=== PATIENT | male | born 1980 | race Caucasian/White ===

== ENCOUNTER 2016-12-25 08:47 | Inpatient (IN) | payer OTHER ==
[~2016-12-25] VITALS: Ht 182.9 cm; Wt 105.7 kg
[~2016-12-25 08:47] MED LIST: AMLODIPINE BESYL5 MG PO; AUGMENTIN875 MG PO; B COMPLETE1 EACH PO; BENTYL20 MG PO; BLOOD PRESSURE MED; CARAFATE1 GM PO; DILAUDID2 MG PO; DILAUDID4 MG PO; ENDOCET 5-3251 EACH PO; FOLIC ACID1 MG PO; HYDROCODON-ACE1 EAC5 PO; HYDROCODON-ACE1 EAC7 PO; HYDROMORPHONE HC2 MG PO; LAXATIVE5 M1 PO; Lopressor PO; NO HOME MEDS; OMEPRAZOLE40 M1 PO; ONE DAILY FOR1 EACH PO; OXYCODONE HCL5 MG PO; OXYCONTIN10 MG PO; PEPCID20 MG PO; PERCOCET 5/31 TABLET PO; PRAVASTATIN SOD40 MG PO; PROMETHAZINE HC25 M1 PO; PROTONIX IV40 MG PO; PROTONIX40 MG PO; REGLAN10 MG PO; Reglan PO; THERAGRAN1 TABLET PO; VITAMIN B-1100 MG PO; Vicodin,Norco 5/325 PO; ZOFRAN ODT4 MG PO; ZOFRAN ODT8 MG PO; ZOFRAN4 MG PO
[2016-12-25 09:27] LABS: CHLORIDE 107 mEq/L (99-109); POTASSIUM 4.8 mEq/L (3.7-5.4); SODIUM 135 mEq/L (136-147)
[2016-12-25 09:29] LABS: GLUCOSE 117 mg/dL (70-99)
[2016-12-25 09:30] LABS: ANION GAP 13 MEQ/L (2-14)
[2016-12-25 09:31] LABS: TOTAL BILIRUBIN 0.5 mg/dL (0.0-1.0)
[2016-12-25 09:32] LABS: ALKALINE PHOSPHATASE 77 IU/L (3-129)
[2016-12-25 09:33] LABS: GFR ESTIMATE (CALCULATED) > 59 mL/min/
[2016-12-25 09:34] LABS: UREA NITROGEN (BUN) 12 mg/dL (9-23)
[2016-12-25 09:36] LABS: LIPASE 299 U/L (1.0-51.0)
[2016-12-25 10:15] LABS: HEMATOCRIT 43.1 % (38.0-50.0); MCH 32.5 PG (29.0-34.0); MCHC 37.4 G/DL (30.0-36.0); MCV 87.1 FL (86-99); MEAN PLAT.VOLUME 10.1 uM^3 (9.0-12.4); PLATELET COUNT 296 K/uL (156-360); RBC DIS.WIDTH-CV 12.5 % (11.8-14.6); RED BLOOD COUNT 4.95 M/uL (4.00-5.50); WHITE BLOOD COUNT 14.6 K/uL (4.1-10.2)
[2016-12-25 11:34] LABS: TROP-I INTERPRETATION NEGATIVE; TROPONIN-I < 0.01 ng/mL (0.0-0.30)
[2016-12-25 15:56] VITALS: BP 173/108
[2016-12-25 16:00] VITALS: BP 173/108
[2016-12-25 17:03] VITALS: BP 180/98
[2016-12-25 20:00] VITALS: BP 195/89
[2016-12-25 23:56] VITALS: BP 197/98
[2016-12-26 06:32] LABS: MCH 33.5 PG (29.0-34.0); MCHC 36.8 G/DL (30.0-36.0); MCV 90.9 FL (86-99); MEAN PLAT.VOLUME 10.9 uM^3 (9.0-12.4); PLATELET COUNT 223 K/uL (156-360); RBC DIS.WIDTH-CV 12.7 % (11.8-14.6); RBC DIS.WIDTH-SD 42.4 % (39-53); RED BLOOD COUNT 4.51 M/uL (4.00-5.50); WHITE BLOOD COUNT 18.8 K/uL (4.1-10.2)
[2016-12-26 06:57] LABS: ALKALINE PHOSPHATASE 73 IU/L (3-129); ANION GAP 10 MEQ/L (2-14); CHLORIDE 104 MEQ/L (99-109); GFR ESTIMATE (CALCULATED) > 59 mL/min/; GLUCOSE 153 mg/dL (70-99); MAGNESIUM 1.9 mg/dl (1.3-2.7); SAMPLE HEMOLYSIS CHECK 0; SAMPLE ICTERIC CHECK 0; SAMPLE LIPEMIA CHECK 0; SODIUM 136 MEQ/L (136-147); TOTAL BILIRUBIN 0.6 MG/DL (0.0-1.0); UREA NITROGEN (BUN) 7 mg/dL (9-23)
[2016-12-26 07:05] LABS: POTASSIUM 3.8 MEQ/L (3.7-5.4)
[2016-12-26 07:54] VITALS: BP 160/98
[2016-12-26 11:14] VITALS: BP 152/111
[2016-12-26 15:27] VITALS: BP 180/98
[2016-12-26 16:01] VITALS: BP 178/100
[2016-12-26 20:07] VITALS: BP 170/100
[2016-12-27 00:02] VITALS: BP 170/62
[2016-12-27 04:07] VITALS: BP 156/60
[2016-12-27 06:17] LABS: HEMATOCRIT 40.4 % (38.0-50.0); MCH 31.6 PG (29.0-34.0); MCHC 34.9 G/DL (30.0-36.0); MCV 90.6 FL (86-99); MEAN PLAT.VOLUME 10.6 uM^3 (9.0-12.4); PLATELET COUNT 175 K/uL (156-360); RBC DIS.WIDTH-CV 12.7 % (11.8-14.6); RBC DIS.WIDTH-SD 41.9 % (39-53); RED BLOOD COUNT 4.46 M/uL (4.00-5.50); WHITE BLOOD COUNT 17.8 K/uL (4.1-10.2)
[2016-12-27 06:43] LABS: ALKALINE PHOSPHATASE 67 IU/L (3-129); ANION GAP 9 MEQ/L (2-14); CHLORIDE 99 MEQ/L (99-109); GFR ESTIMATE (CALCULATED) > 59 mL/min/; GLUCOSE 126 mg/dL (70-99); HDL CHOLESTEROL 51 MG/DL (Desirable>=40); LDL CHOLESTEROL 112 mg/dL (Desirable<100); LIPASE 171 U/L (1.0-51.0); NON-HDL CHOLESTEROL 146 mg/dL (Desirable<160); POTASSIUM 3.5 MEQ/L (3.7-5.4); SAMPLE HEMOLYSIS CHECK 0; SAMPLE ICTERIC CHECK 0; SAMPLE LIPEMIA CHECK 0; SODIUM 135 MEQ/L (136-147); TOTAL BILIRUBIN 0.7 MG/DL (0.0-1.0); TOTAL CHOLESTEROL 197 mg/dL (Desirable<200); TRIGLYCERIDES 169 MG/DL (Normal: <150); UREA NITROGEN (BUN) 4 mg/dL (9-23)
[2016-12-27 07:06] VITALS: BP 172/96
[2016-12-27 09:21] LABS: Estimated Average Glucose 105 mg/dL (70-123); HEMOGLOBIN A1c (GLYCOHEMOGLOB) 5.3 % HGB (Below 5.7)
[2016-12-27 11:22] VITALS: BP 182/106
[2016-12-27 15:24] VITALS: BP 168/102
[2016-12-27 23:42] VITALS: BP 158/98
[2016-12-28 07:45] VITALS: BP 203/113
[2016-12-28 08:15] VITALS: BP 180/82
[2016-12-28 08:41] LABS: HEMATOCRIT 39.7 % (38.0-50.0); MCH 31.4 PG (29.0-34.0); MCHC 34.8 G/DL (30.0-36.0); MCV 90.4 FL (86-99); MEAN PLAT.VOLUME 10.4 uM^3 (9.0-12.4); PLATELET COUNT 179 K/uL (156-360); RBC DIS.WIDTH-CV 12.7 % (11.8-14.6); RBC DIS.WIDTH-SD 41.8 % (39-53); RED BLOOD COUNT 4.39 M/uL (4.00-5.50)
[2016-12-28 08:44] LABS: WHITE BLOOD COUNT 9.8 K/uL (4.1-10.2)
[2016-12-28 09:02] LABS: ALKALINE PHOSPHATASE 70 IU/L (3-129); ANION GAP 8 MEQ/L (2-14); CHLORIDE 99 MEQ/L (99-109); GFR ESTIMATE (CALCULATED) > 59 mL/min/; GLUCOSE 99 mg/dL (70-99); LIPASE 73 U/L (1.0-51.0); POTASSIUM 3.4 MEQ/L (3.7-5.4); SAMPLE HEMOLYSIS CHECK 0; SAMPLE ICTERIC CHECK 0; SAMPLE LIPEMIA CHECK 0; SODIUM 135 MEQ/L (136-147); TOTAL BILIRUBIN 0.8 MG/DL (0.0-1.0); UREA NITROGEN (BUN) 7 mg/dL (9-23)
[2016-12-28 10:05] VITALS: BP 178/108
[2016-12-28 16:20] VITALS: BP 148/105
[2016-12-29 00:03] VITALS: BP 150/94
[2016-12-29 06:17] LABS: HEMATOCRIT 38.1 % (38.0-50.0); MCH 32.5 PG (29.0-34.0); MCHC 36.2 G/DL (30.0-36.0); MCV 89.6 FL (86-99); MEAN PLAT.VOLUME 9.8 uM^3 (9.0-12.4); PLATELET COUNT 192 K/uL (156-360); RBC DIS.WIDTH-CV 12.6 % (11.8-14.6); RBC DIS.WIDTH-SD 40.4 % (39-53); RED BLOOD COUNT 4.25 M/uL (4.00-5.50); WHITE BLOOD COUNT 8.7 K/uL (4.1-10.2)
[2016-12-29 06:41] LABS: ALKALINE PHOSPHATASE 64 IU/L (3-129); ANION GAP 8 MEQ/L (2-14); CHLORIDE 101 MEQ/L (99-109); GFR ESTIMATE (CALCULATED) > 59 mL/min/; GLUCOSE 112 mg/dL (70-99); LIPASE 82 U/L (1.0-51.0); POTASSIUM 3.6 MEQ/L (3.7-5.4); SAMPLE HEMOLYSIS CHECK 0; SAMPLE ICTERIC CHECK 0; SAMPLE LIPEMIA CHECK 0; SODIUM 136 MEQ/L (136-147); TOTAL BILIRUBIN 0.8 MG/DL (0.0-1.0); UREA NITROGEN (BUN) 7 mg/dL (9-23)
[2016-12-29 07:39] VITALS: BP 148/70
[2016-12-29 11:46] VITALS: BP 156/99
[2016-12-29] MEDS ORDERED: OXYCODONE HCL5 MG PO (11:53)
== END 2016-12-29 14:50 | disposition home or self-care (01) | DRG 439 ==
LOC: EME 08:47 → 5SOUTH 10:40 → EDOF 10:40 → 5SOUTH 15:39
PROVIDERS: Internal Medicine; Internal Medicine Gastroenterology; Nurse Practitioner Adult Health
DX: K85.20 Alcohol induced acute pancreatitis without necrosis or infection (principal); E87.1 Hypo-osmolality and hyponatremia; K86.0 Alcohol-induced chronic pancreatitis; F10.20 Alcohol dependence, uncomplicated; F17.210 Nicotine dependence, cigarettes, uncomplicated; Z91.19 Patient's noncompliance with other medical treatment and regimen; I10 Essential (primary) hypertension; K70.0 Alcoholic fatty liver; Z71.6 Tobacco abuse counseling
CPT/HCPCS: 71020; 74176; 76705; 80053; 80061; 81003; 82787 90; 83036; 83690; 83735; 84100; 84484; 85027; 87040; 99281; 99285; C9113; J0360; J1170; J1650; J1885; J2060; J2405; J2765; J3411; J3480; J7030; J7042; S0028

== ENCOUNTER 2017-08-18 21:11 | Inpatient (IN) | payer OTHER ==
[~2017-08-18] VITALS: Ht 182.9 cm; Wt 104.4 kg
[2017-08-18 22:07] LABS: HEMATOCRIT 47.6 % (38.0-50.0); MCHC 35.9 G/DL (30.0-36.0); MEAN PLAT.VOLUME 9.7 uM^3 (9.0-12.4); PLATELET COUNT 291 K/uL (156-360); RBC DIS.WIDTH-SD 39.1 % (39-53); RED BLOOD COUNT 5.35 M/uL (4.00-5.50)
[2017-08-18 22:17] LABS: CHLORIDE 106 mEq/L (99-109); POTASSIUM 4.4 mEq/L (3.7-5.4); SODIUM 139 mEq/L (136-147)
[2017-08-18 22:19] LABS: GLUCOSE 120 mg/dL (70-99)
[2017-08-18 22:21] LABS: ANION GAP 13 MEQ/L (2-14); TOTAL BILIRUBIN 0.4 mg/dL (0.0-1.0)
[2017-08-18 22:23] LABS: ALKALINE PHOSPHATASE 87 IU/L (3-129); GFR ESTIMATE (CALCULATED) > 59 mL/min/
[2017-08-18 22:24] LABS: UREA NITROGEN (BUN) 11 mg/dL (9-23)
[2017-08-18 22:27] LABS: LIPASE 247 U/L (1.0-51.0)
[2017-08-19 03:47] LABS: ADD MIUA? NO; BILIRUBIN NEGATIVE; BLOOD NEGATIVE; COLOR YELLOW ((YELLOW)); GLUCOSE (STRIP) NEGATIVE; KETONES NEGATIVE; LEUKOCYTES NEGATIVE; NITRITE NEGATIVE; PROTEIN (STRIP) NEGATIVE; SPECIFIC GRAVITY 1.036 (1.000-1.030); UROBILINOGEN 0.2 MG/DL (0.2-1.0)
[2017-08-19 03:51] LABS: UCUL ADDED? NO
[2017-08-19 05:00] VITALS: BP 159/86
[2017-08-19 05:38] VITALS: BP 159/86
[2017-08-19 07:56] VITALS: BP 168/102; BP 177/106
[2017-08-19 23:39] VITALS: BP 188/90
[2017-08-20 06:58] LABS: EOSINOPHIL (%) 0.2 % (0-5); HEMATOCRIT 41.3 % (38.0-50.0); IMMATURE GRANULOCYTE (%) 0.6 % (0.0-0.7); IMMATURE GRANULOCYTE COUNT 0.1 K/uL; INSTRUMENT ABS NEUTROPHIL CT 14.5 K/uL; LYMPHOCYTE COUNT 0.8 K/uL (1.0-2.8); MCH 33.5 PG (29.0-34.0); MCHC 36.8 G/DL (30.0-36.0); MEAN PLAT.VOLUME 10.1 uM^3 (9.0-12.4); MONOCYTE (%) 4.7 % (3-12); MONOCYTE COUNT 0.8 K/uL (0-0.8); NEUTROPHIL (%) 89.7 % (45-76); NEUTROPHIL COUNT 14.5 K/uL (1.8-6.4); PLATELET COUNT 224 K/uL (156-360); RBC DIS.WIDTH-CV 12.1 % (11.8-14.6); RBC DIS.WIDTH-SD 40.4 % (39-53); RED BLOOD COUNT 4.54 M/uL (4.00-5.50); WHITE BLOOD COUNT 16.2 K/uL (4.1-10.2)
[2017-08-20 07:25] LABS: ALKALINE PHOSPHATASE 69 IU/L (3-129); ANION GAP 6 MEQ/L (2-14); CHLORIDE 106 MEQ/L (99-109); GFR ESTIMATE (CALCULATED) > 59 mL/min/; GLUCOSE 157 mg/dL (70-99); POTASSIUM 3.6 MEQ/L (3.7-5.4); SAMPLE HEMOLYSIS CHECK 0; SAMPLE ICTERIC CHECK 0; SAMPLE LIPEMIA CHECK 0; SODIUM 137 MEQ/L (136-147); TOTAL BILIRUBIN 0.6 MG/DL (0.0-1.0); UREA NITROGEN (BUN) 7 mg/dL (9-23)
[2017-08-20 07:48] LABS: ANION GAP 11 MEQ/L (2-14); CHLORIDE 107 MEQ/L (99-109); GFR ESTIMATE (CALCULATED) > 59 mL/min/; GLUCOSE 147 mg/dL (70-99); LIPASE 530 U/L (1.0-51.0); POTASSIUM 3.7 MEQ/L (3.7-5.4); SAMPLE HEMOLYSIS CHECK 0; SAMPLE ICTERIC CHECK 0; SAMPLE LIPEMIA CHECK 0; SODIUM 139 MEQ/L (136-147); UREA NITROGEN (BUN) 6 mg/dL (9-23)
[2017-08-20 07:53] VITALS: BP 172/60
[2017-08-20 08:43] LABS: FERRITIN 423 NG/ML (22-322)
[2017-08-20 09:54] LABS: MAGNESIUM 1.7 mg/dl (1.3-2.7)
[2017-08-20 11:11] LABS: HBSG INDEX 0.19; HPCA INDEX 0.11
[2017-08-20 11:12] LABS: AHBS INDEX 0.16; HEPATITIS B SURFACE ANTIBODY Nonreactive
[2017-08-20 17:26] VITALS: BP 150/80
[2017-08-20 22:49] VITALS: BP 180/108
[2017-08-21 06:14] LABS: HEMATOCRIT 42.8 % (38.0-50.0); MCH 33.1 PG (29.0-34.0); MCHC 36.9 G/DL (30.0-36.0); MCV 89.5 FL (86-99); MEAN PLAT.VOLUME 9.9 uM^3 (9.0-12.4); PLATELET COUNT 215 K/uL (156-360); RBC DIS.WIDTH-CV 11.9 % (11.8-14.6); RBC DIS.WIDTH-SD 38.8 % (39-53); RED BLOOD COUNT 4.78 M/uL (4.00-5.50); WHITE BLOOD COUNT 20.1 K/uL (4.1-10.2)
[2017-08-21 06:37] LABS: ALKALINE PHOSPHATASE 72 IU/L (3-129); ANION GAP 13 MEQ/L (2-14); CHLORIDE 98 MEQ/L (99-109); GFR ESTIMATE (CALCULATED) > 59 mL/min/; GLUCOSE 151 mg/dL (70-99); POTASSIUM 3.5 MEQ/L (3.7-5.4); SAMPLE HEMOLYSIS CHECK 1; SAMPLE ICTERIC CHECK 0; SAMPLE LIPEMIA CHECK 0; SODIUM 135 MEQ/L (136-147); TOTAL BILIRUBIN 0.7 MG/DL (0.0-1.0); UREA NITROGEN (BUN) 3 mg/dL (9-23)
[2017-08-21 07:28] VITALS: BP 190/100
[2017-08-21 12:50] VITALS: BP 181/118
[2017-08-21 13:55] VITALS: BP 182/115
[2017-08-21 16:36] VITALS: BP 196/116
[2017-08-21 22:04] VITALS: BP 181/104
[2017-08-22 03:58] VITALS: BP 141/95
[2017-08-22 07:18] VITALS: BP 155/99
[2017-08-22 09:21] VITALS: BP 142/92
[2017-08-22 09:37] LABS: HEMATOCRIT 39.3 % (38.0-50.0); MCH 33.5 PG (29.0-34.0); MCHC 37.4 G/DL (30.0-36.0); MCV 89.5 FL (86-99); MEAN PLAT.VOLUME 9.7 uM^3 (9.0-12.4); PLATELET COUNT 210 K/uL (156-360); RBC DIS.WIDTH-SD 39.1 % (39-53); RED BLOOD COUNT 4.39 M/uL (4.00-5.50); WHITE BLOOD COUNT 17.8 K/uL (4.1-10.2)
[2017-08-22 10:05] LABS: ALKALINE PHOSPHATASE 72 IU/L (3-129); ANION GAP 8 MEQ/L (2-14); CHLORIDE 98 MEQ/L (99-109); GFR ESTIMATE (CALCULATED) > 59 mL/min/; LIPASE 95 U/L (1.0-51.0); POTASSIUM 3.4 MEQ/L (3.7-5.4); SAMPLE HEMOLYSIS CHECK 0; SAMPLE ICTERIC CHECK 0; SAMPLE LIPEMIA CHECK 0; SODIUM 132 MEQ/L (136-147); UREA NITROGEN (BUN) 10 mg/dL (9-23)
[2017-08-22 10:07] LABS: GLUCOSE 112 mg/dL (70-99); TOTAL BILIRUBIN 1.3 MG/DL (0.0-1.0)
[2017-08-22 15:56] VITALS: BP 136/82
[2017-08-22 23:55] VITALS: BP 137/90
[2017-08-23 06:06] LABS: HEMATOCRIT 41.3 % (38.0-50.0); MCH 31.3 PG (29.0-34.0); MCHC 34.6 G/DL (30.0-36.0); MCV 90.4 FL (86-99); MEAN PLAT.VOLUME 9.7 uM^3 (9.0-12.4); PLATELET COUNT 215 K/uL (156-360); RBC DIS.WIDTH-CV 11.9 % (11.8-14.6); RBC DIS.WIDTH-SD 39.6 % (39-53); RED BLOOD COUNT 4.57 M/uL (4.00-5.50)
[2017-08-23 06:56] LABS: ALKALINE PHOSPHATASE 85 IU/L (3-129); ANION GAP 11 MEQ/L (2-14); CHLORIDE 100 MEQ/L (99-109); GFR ESTIMATE (CALCULATED) > 59 mL/min/; GLUCOSE 80 mg/dL (70-99); LIPASE 78 U/L (1.0-51.0); POTASSIUM 3.4 MEQ/L (3.7-5.4); PREALBUMIN 10.4 mg/dL (10-40); SAMPLE HEMOLYSIS CHECK 0; SAMPLE ICTERIC CHECK 0; SAMPLE LIPEMIA CHECK 0; SODIUM 135 MEQ/L (136-147); TRIGLYCERIDES 137 MG/DL (Normal: <150); UREA NITROGEN (BUN) 10 mg/dL (9-23)
[2017-08-23 08:53] VITALS: BP 139/85
[2017-08-23 16:24] VITALS: BP 135/70
[2017-08-23 23:45] VITALS: BP 117/80
[2017-08-24 06:30] LABS: BASOPHIL COUNT 0.1 K/uL (0-0.1); EOSINOPHIL (%) 4.3 % (0-5); EOSINOPHIL COUNT 0.4 K/uL (0-0.3); HEMATOCRIT 38.8 % (38.0-50.0); IMMATURE GRANULOCYTE (%) 0.7 % (0.0-0.7); IMMATURE GRANULOCYTE COUNT 0.1 K/uL; INSTRUMENT ABS NEUTROPHIL CT 7.4 K/uL; LYMPHOCYTE COUNT 1.5 K/uL (1.0-2.8); MCH 32.5 PG (29.0-34.0); MCHC 35.3 G/DL (30.0-36.0); MCV 92.2 FL (86-99); MEAN PLAT.VOLUME 9.7 uM^3 (9.0-12.4); MONOCYTE (%) 7.5 % (3-12); MONOCYTE COUNT 0.8 K/uL (0-0.8); NEUTROPHIL (%) 72.2 % (45-76); NEUTROPHIL COUNT 7.4 K/uL (1.8-6.4); PLATELET COUNT 223 K/uL (156-360); RBC DIS.WIDTH-CV 11.9 % (11.8-14.6); RBC DIS.WIDTH-SD 40.1 % (39-53); RED BLOOD COUNT 4.21 M/uL (4.00-5.50); WHITE BLOOD COUNT 10.2 K/uL (4.1-10.2)
[2017-08-24 07:02] LABS: ALKALINE PHOSPHATASE 76 IU/L (3-129); ANION GAP 10 MEQ/L (2-14); CHLORIDE 101 MEQ/L (99-109); GFR ESTIMATE (CALCULATED) > 59 mL/min/; LIPASE 50 U/L (1.0-51.0); MAGNESIUM 2.2 mg/dl (1.3-2.7); POTASSIUM 3.9 MEQ/L (3.7-5.4); SAMPLE HEMOLYSIS CHECK 0; SAMPLE ICTERIC CHECK 0; SAMPLE LIPEMIA CHECK 0; SODIUM 136 MEQ/L (136-147); UREA NITROGEN (BUN) 11 mg/dL (9-23)
[2017-08-24 07:05] LABS: GLUCOSE 112 mg/dL (70-99); TOTAL BILIRUBIN 0.7 MG/DL (0.0-1.0)
[2017-08-24 07:42] VITALS: BP 139/82
[2017-08-24 15:46] VITALS: BP 162/94
[2017-08-24 20:07] VITALS: BP 143/83
[2017-08-24 23:19] VITALS: BP 150/95
[2017-08-25 06:43] LABS: BASOPHIL COUNT 0.1 K/uL (0-0.1); EOSINOPHIL (%) 3.6 % (0-5); EOSINOPHIL COUNT 0.3 K/uL (0-0.3); HEMATOCRIT 38.9 % (38.0-50.0); IMMATURE GRANULOCYTE (%) 0.5 % (0.0-0.7); INSTRUMENT ABS NEUTROPHIL CT 5.3 K/uL; LYMPHOCYTE COUNT 1.9 K/uL (1.0-2.8); MCH 32.8 PG (29.0-34.0); MCHC 36.2 G/DL (30.0-36.0); MCV 90.5 FL (86-99); MEAN PLAT.VOLUME 9.7 uM^3 (9.0-12.4); MONOCYTE (%) 10.3 % (3-12); MONOCYTE COUNT 0.9 K/uL (0-0.8); NEUTROPHIL (%) 62.9 % (45-76); NEUTROPHIL COUNT 5.3 K/uL (1.8-6.4); PLATELET COUNT 242 K/uL (156-360); RBC DIS.WIDTH-CV 11.9 % (11.8-14.6); RBC DIS.WIDTH-SD 38.8 % (39-53); WHITE BLOOD COUNT 8.4 K/uL (4.1-10.2)
[2017-08-25 07:07] LABS: ANION GAP 8 MEQ/L (2-14); CHLORIDE 102 MEQ/L (99-109); GFR ESTIMATE (CALCULATED) > 59 mL/min/; GLUCOSE 134 mg/dL (70-99); MAGNESIUM 1.9 mg/dl (1.3-2.7); POTASSIUM 3.7 MEQ/L (3.7-5.4); SAMPLE HEMOLYSIS CHECK 0; SAMPLE ICTERIC CHECK 0; SAMPLE LIPEMIA CHECK 0; SODIUM 139 MEQ/L (136-147); UREA NITROGEN (BUN) 6 mg/dL (9-23)
[2017-08-25] MEDS ORDERED: LOPRESSOR25 MG PO (10:48)
[2017-08-25] MEDS ORDERED: Thiamine,Vitamin B1 PO (10:49)
[2017-08-25] MEDS ORDERED: CLONIDINE HCL0.1 MG PO (10:49)
[2017-08-25] MEDS ORDERED: FOLIC ACID1 MG PO (10:49)
[2017-08-25] MEDS ORDERED: ROXICODONE5 MG PO (12:52)
== END 2017-08-25 13:38 | disposition home or self-care (01) | DRG 439 ==
LOC: EME 21:11 → 5EAST 08-19 02:41 → EDOF 08-19 02:41 → ENRESERV 08-19 02:43 → 5EAST 08-19 04:46 → ENPENDDIS 08-25 → 5EAST 08-25 13:38
PROVIDERS: Hospitalist; Internal Medicine; Internal Medicine Gastroenterology; Physician Assistant
DX: K85.20 Alcohol induced acute pancreatitis without necrosis or infection (principal); K86.1 Other chronic pancreatitis; Z91.19 Patient's noncompliance with other medical treatment and regimen; E87.6 Hypokalemia; E86.0 Dehydration; F17.210 Nicotine dependence, cigarettes, uncomplicated; K86.3 Pseudocyst of pancreas; R65.10 Systemic inflammatory response syndrome (SIRS) of non-infectious origin without acute organ dysfunction; I16.0 Hypertensive urgency; F10.239 Alcohol dependence with withdrawal, unspecified; K76.0 Fatty (change of) liver, not elsewhere classified; I10 Essential (primary) hypertension; E83.39 Other disorders of phosphorus metabolism
CPT/HCPCS: 71010; 74177; 76705; 80048; 80053; 81003; 82728; 83690; 83735; 84100; 84134; 84478; 84630 90; 85025; 85027; 86038; 86706; 86708 90; 86803; 87340; 93005; 99281; 99285; J0360; J1170; J1650; J1885; J2060; J2270; J2405; J2543; J3010; J3411; J3480; J7030; J7042; J7050

== ENCOUNTER 2018-04-14 19:18 | Emergency (ER) | payer OTHER ==
[~2018-04-14] VITALS: Ht 182.9 cm; Wt 104.3 kg
[~2018-04-14 19:18] MED LIST changes: +CLONIDINE HCL0.1 MG PO; +LOPRESSOR25 MG PO; +ROXICODONE5 MG PO; +Thiamine,Vitamin B1 PO
[2018-04-14 19:38] LABS: HEMATOCRIT 44.4 % (38.0-50.0); HEMOGLOBIN 16.1 G/DL (12.5-16.6); MCH 33.2 PG (29.0-34.0); MCHC 36.3 G/DL (30.0-36.0); MCV 91.5 FL (86-99); PLATELET COUNT 236 K/uL (156-360); RBC DIS.WIDTH-CV 12.5 % (11.8-14.6); RBC DIS.WIDTH-SD 41.9 % (39-53); RED BLOOD COUNT 4.85 M/uL (4.00-5.50); WHITE BLOOD COUNT 13.3 K/uL (4.1-10.2)
[2018-04-14 19:49] LABS: CHLORIDE 105 mEq/L (99-109)
[2018-04-14 19:50] LABS: POTASSIUM 4.4 mEq/L (3.7-5.4); SODIUM 138 mEq/L (136-147)
[2018-04-14 19:51] LABS: GLUCOSE 125 mg/dL (70-99)
[2018-04-14 19:55] LABS: CREATININE 1.1 mg/dL (0.6-1.3); GFR ESTIMATE (CALCULATED) > 59 mL/min/ (58.99-99999)
[2018-04-14 19:56] LABS: UREA NITROGEN (BUN) 10 mg/dL (9-23)
[2018-04-14 20:01] LABS: TROP-I INTERPRETATION NEGATIVE; TROPONIN-I < 0.01 ng/mL (0.0-0.30)
[2018-04-14 21:41] LABS: TOTAL PROTEIN 7.1 g/dL (6.4-8.3)
[2018-04-14 21:42] LABS: TOTAL BILIRUBIN 0.6 mg/dL (0.0-1.0)
[2018-04-14 21:43] LABS: ALKALINE PHOSPHATASE 90 IU/L (3-129)
[2018-04-14 21:46] LABS: AST (GOT) 102 IU/L (2-34); DIRECT BILIRUBIN 0.3 mg/dL (0.0-0.3)
[2018-04-14 21:47] LABS: ALT (GPT) 168 IU/L (3-49); LIPASE 20 U/L (1.0-51.0)
[2018-04-14] MEDS ORDERED: VALIUM5 MG PO (22:38)
[2018-04-14] MEDS ORDERED: NAPROXEN500 MG PO (22:38)
[2018-04-14 23:00] VITALS: BP 138/123
== END 2018-04-14 23:08 | disposition home or self-care (01) ==
LOC: EME 19:18
DX: M54.9 Dorsalgia, unspecified (principal); R74.8 Abnormal levels of other serum enzymes; K21.9 Gastro-esophageal reflux disease without esophagitis; F17.200 Nicotine dependence, unspecified, uncomplicated; Z87.19 Personal history of other diseases of the digestive system
CPT/HCPCS: 71046; 80048; 80076; 83690; 84484; 85027; 93005; 99281; 99285

== ENCOUNTER 2018-05-04 16:17 | Inpatient (IN) | payer OTHER ==
[~2018-05-04] VITALS: Ht 182.9 cm; Wt 104.1 kg
[~2018-05-04 16:17] MED LIST changes: +NAPROXEN500 MG PO; +VALIUM5 MG PO
[2018-05-04 16:40] LABS: BASOPHIL (%) 0.6 % (0-1); BASOPHIL COUNT 0.1 K/uL (0-0.1); EOSINOPHIL (%) 2.9 % (0-5); EOSINOPHIL COUNT 0.5 K/uL (0-0.3); HEMATOCRIT 45.6 % (38.0-50.0); IMMATURE GRANULOCYTE (%) 0.5 % (0.0-0.7); LYMPHOCYTE (%) 13.1 % (15-42); LYMPHOCYTE COUNT 2.2 K/uL (1.0-2.8); MCH 33.1 PG (29.0-34.0); MCHC 37.3 G/DL (30.0-36.0); MCV 88.7 FL (86-99); MONOCYTE (%) 4.8 % (3-12); MONOCYTE COUNT 0.8 K/uL (0-0.8); NEUTROPHIL (%) 78.1 % (45-76); NEUTROPHIL COUNT 13.4 K/uL (1.8-6.4); PLATELET COUNT 281 K/uL (156-360); RBC DIS.WIDTH-CV 12.1 % (11.8-14.6); RBC DIS.WIDTH-SD 39.6 % (39-53); RED BLOOD COUNT 5.14 M/uL (4.00-5.50); WHITE BLOOD COUNT 17.1 K/uL (4.1-10.2)
[2018-05-04 16:50] LABS: ALBUMIN 4.3 g/dL (3.2-4.8); CHLORIDE 104 mEq/L (99-109); POTASSIUM 4.6 mEq/L (3.7-5.4); SODIUM 136 mEq/L (136-147)
[2018-05-04 16:52] LABS: GLUCOSE 122 mg/dL (70-99); TOTAL PROTEIN 7.3 g/dL (6.4-8.3)
[2018-05-04 16:54] LABS: TOTAL BILIRUBIN 0.3 mg/dL (0.0-1.0)
[2018-05-04 16:56] LABS: ALKALINE PHOSPHATASE 85 IU/L (3-129); CREATININE 0.9 mg/dL (0.6-1.3); GFR ESTIMATE (CALCULATED) > 59 mL/min/ (58.99-99999)
[2018-05-04 16:57] LABS: UREA NITROGEN (BUN) 9 mg/dL (9-23)
[2018-05-04 16:58] LABS: AST (GOT) 61 IU/L (2-34)
[2018-05-04 16:59] LABS: ALT (GPT) 96 IU/L (3-49); LIPASE 731 U/L (1.0-51.0)
[2018-05-04] MEDS ORDERED: NAPROSYN500 MG PO (17:40)
[2018-05-04 18:09] LABS: SERUM ETHYL ALCOHOL < 10 mg/dL
[2018-05-04 19:00] LABS: MAGNESIUM 1.8 mg/dL (1.3-2.7)
[2018-05-04 19:35] LABS: C-REACTIVE PROTEIN 2.7 MG/L (0-10)
[2018-05-04 21:21] VITALS: BP 182/111
[2018-05-05] VITALS (8 sets, daily range): BP systolic 132–201; BP diastolic 68–118
[2018-05-05 06:45] LABS: BASOPHIL (%) 0.4 % (0-1); BASOPHIL COUNT 0.1 K/uL (0-0.1); EOSINOPHIL (%) 1.3 % (0-5); EOSINOPHIL COUNT 0.2 K/uL (0-0.3); HEMATOCRIT 43.5 % (38.0-50.0); HEMOGLOBIN 15.3 G/DL (12.5-16.6); IMMATURE GRANULOCYTE (%) 0.5 % (0.0-0.7); LYMPHOCYTE (%) 9.9 % (15-42); LYMPHOCYTE COUNT 1.7 K/uL (1.0-2.8); MCH 31.9 PG (29.0-34.0); MCHC 35.2 G/DL (30.0-36.0); MCV 90.8 FL (86-99); MONOCYTE (%) 5.2 % (3-12); MONOCYTE COUNT 0.9 K/uL (0-0.8); NEUTROPHIL (%) 82.7 % (45-76); NEUTROPHIL COUNT 13.7 K/uL (1.8-6.4); PLATELET COUNT 242 K/uL (156-360); RBC DIS.WIDTH-CV 12.1 % (11.8-14.6); RBC DIS.WIDTH-SD 40.3 % (39-53); RED BLOOD COUNT 4.79 M/uL (4.00-5.50); WHITE BLOOD COUNT 16.6 K/uL (4.1-10.2)
[2018-05-05 06:49] LABS: APPEARANCE CLEAR ((CLEAR)); BILIRUBIN NEGATIVE; BLOOD NEGATIVE; COLOR YELLOW ((YELLOW)); GLUCOSE (STRIP) NEGATIVE; KETONES NEGATIVE; LEUKOCYTES NEGATIVE; NITRITE NEGATIVE; PROTEIN (STRIP) NEGATIVE; SPECIFIC GRAVITY 1.033 (1.000-1.030); UCUL ADDED? NO; UROBILINOGEN 0.2 MG/DL (0.2-1.0)
[2018-05-05 07:04] LABS: ALBUMIN 3.8 G/DL (3.2-4.8); ALKALINE PHOSPHATASE 81 IU/L (3-129); ALT (GPT) 57 IU/L (3-49); AST (GOT) 36 IU/L (2-34); CHLORIDE 104 MEQ/L (99-109); CREATININE 0.7 MG/DL (0.6-1.3); GFR ESTIMATE (CALCULATED) > 59 mL/min/ (58.99-99999); GLUCOSE 133 mg/dL (70-99); LIPASE 434 U/L (1.0-51.0); POTASSIUM 4.4 MEQ/L (3.7-5.4); SODIUM 137 MEQ/L (136-147); TOTAL BILIRUBIN 0.6 MG/DL (0.0-1.0); TOTAL PROTEIN 5.9 G/DL (6.4-8.3); UREA NITROGEN (BUN) 7 mg/dL (9-23)
[2018-05-06 00:20] VITALS: BP 194/103
[2018-05-06 04:45] VITALS: BP 184/105
[2018-05-06 06:35] VITALS: BP 171/99
[2018-05-06 10:17] LABS: BASOPHIL (%) 0.5 % (0-1); BASOPHIL COUNT 0.1 K/uL (0-0.1); EOSINOPHIL (%) 1.2 % (0-5); EOSINOPHIL COUNT 0.2 K/uL (0-0.3); HEMATOCRIT 42.9 % (38.0-50.0); HEMOGLOBIN 15.6 G/DL (12.5-16.6); IMMATURE GRANULOCYTE (%) 0.5 % (0.0-0.7); LYMPHOCYTE (%) 8.1 % (15-42); LYMPHOCYTE COUNT 1.2 K/uL (1.0-2.8); MCH 32.4 PG (29.0-34.0); MCHC 36.4 G/DL (30.0-36.0); MONOCYTE COUNT 0.8 K/uL (0-0.8); NEUTROPHIL (%) 84.7 % (45-76); NEUTROPHIL COUNT 12.9 K/uL (1.8-6.4); PLATELET COUNT 208 K/uL (156-360); RBC DIS.WIDTH-CV 12.1 % (11.8-14.6); RBC DIS.WIDTH-SD 39.4 % (39-53); RED BLOOD COUNT 4.82 M/uL (4.00-5.50); WHITE BLOOD COUNT 15.3 K/uL (4.1-10.2)
[2018-05-06 10:43] LABS: CHLORIDE 94 MEQ/L (99-109); CREATININE 0.6 MG/DL (0.6-1.3); GFR ESTIMATE (CALCULATED) > 59 mL/min/ (58.99-99999); GLUCOSE 124 mg/dL (70-99); LIPASE 83 U/L (1.0-51.0); POTASSIUM 3.8 MEQ/L (3.7-5.4); SODIUM 130 MEQ/L (136-147); UREA NITROGEN (BUN) 4 mg/dL (9-23)
[2018-05-06 11:47] VITALS: BP 166/84
[2018-05-06 15:05] VITALS: BP 165/101
[2018-05-06 23:03] VITALS: BP 158/100; BP 165/103
[2018-05-07 06:08] LABS: BASOPHIL (%) 0.3 % (0-1); EOSINOPHIL (%) 2.1 % (0-5); EOSINOPHIL COUNT 0.3 K/uL (0-0.3); HEMATOCRIT 42.6 % (38.0-50.0); HEMOGLOBIN 15.2 G/DL (12.5-16.6); IMMATURE GRANULOCYTE (%) 0.4 % (0.0-0.7); LYMPHOCYTE (%) 12.5 % (15-42); LYMPHOCYTE COUNT 1.6 K/uL (1.0-2.8); MCH 31.6 PG (29.0-34.0); MCHC 35.7 G/DL (30.0-36.0); MCV 88.6 FL (86-99); MONOCYTE (%) 6.1 % (3-12); MONOCYTE COUNT 0.8 K/uL (0-0.8); NEUTROPHIL (%) 78.6 % (45-76); PLATELET COUNT 224 K/uL (156-360); RBC DIS.WIDTH-CV 11.8 % (11.8-14.6); RBC DIS.WIDTH-SD 38.3 % (39-53); RED BLOOD COUNT 4.81 M/uL (4.00-5.50); WHITE BLOOD COUNT 12.7 K/uL (4.1-10.2)
[2018-05-07 06:38] LABS: CHLORIDE 96 MEQ/L (99-109); CREATININE 0.6 MG/DL (0.6-1.3); GFR ESTIMATE (CALCULATED) > 59 mL/min/ (58.99-99999); GLUCOSE 107 mg/dL (70-99); LIPASE 46 U/L (1.0-51.0); POTASSIUM 3.8 MEQ/L (3.7-5.4); SODIUM 130 MEQ/L (136-147); UREA NITROGEN (BUN) 5 mg/dL (9-23)
[2018-05-07 06:53] LABS: APPEARANCE CLEAR ((CLEAR)); BILIRUBIN NEGATIVE; BLOOD NEGATIVE; COLOR YELLOW ((YELLOW)); GLUCOSE (STRIP) NEGATIVE; KETONES 80; LEUKOCYTES NEGATIVE; NITRITE NEGATIVE; PROTEIN (STRIP) NEGATIVE; SPECIFIC GRAVITY 1.011 (1.000-1.030); UCUL ADDED? NO
[2018-05-07 07:24] VITALS: BP 178/110
[2018-05-07 16:33] VITALS: BP 172/100
[2018-05-07 19:42] VITALS: BP 174/104
[2018-05-07 20:55] VITALS: BP 142/79
[2018-05-08 00:13] VITALS: BP 165/95
[2018-05-08 03:57] VITALS: BP 165/99
[2018-05-08 08:00] VITALS: BP 169/105
[2018-05-08 08:53] LABS: BASOPHIL (%) 0.5 % (0-1); BASOPHIL COUNT 0.1 K/uL (0-0.1); EOSINOPHIL (%) 2.1 % (0-5); EOSINOPHIL COUNT 0.2 K/uL (0-0.3); HEMATOCRIT 45.5 % (38.0-50.0); HEMOGLOBIN 16.5 G/DL (12.5-16.6); IMMATURE GRANULOCYTE (%) 0.2 % (0.0-0.7); LYMPHOCYTE (%) 10.8 % (15-42); LYMPHOCYTE COUNT 1.2 K/uL (1.0-2.8); MCH 31.9 PG (29.0-34.0); MCHC 36.3 G/DL (30.0-36.0); MONOCYTE (%) 7.5 % (3-12); MONOCYTE COUNT 0.8 K/uL (0-0.8); NEUTROPHIL (%) 78.9 % (45-76); NEUTROPHIL COUNT 8.8 K/uL (1.8-6.4); PLATELET COUNT 246 K/uL (156-360); RBC DIS.WIDTH-CV 11.9 % (11.8-14.6); RBC DIS.WIDTH-SD 38.2 % (39-53); RED BLOOD COUNT 5.17 M/uL (4.00-5.50); WHITE BLOOD COUNT 11.2 K/uL (4.1-10.2)
[2018-05-08 09:20] LABS: CHLORIDE 94 MEQ/L (99-109); CREATININE 0.6 MG/DL (0.6-1.3); GFR ESTIMATE (CALCULATED) > 59 mL/min/ (58.99-99999); GLUCOSE 154 mg/dL (70-99); POTASSIUM 3.6 MEQ/L (3.7-5.4); SODIUM 131 MEQ/L (136-147); UREA NITROGEN (BUN) 5 mg/dL (9-23)
[2018-05-08 11:29] VITALS: BP 161/97
[2018-05-08 12:53] VITALS: BP 142/98
[2018-05-08] MEDS ORDERED: FOLIC ACID1 MG PO (13:53)
[2018-05-08] MEDS ORDERED: B-1100 MG PO (13:53)
[2018-05-08] MEDS ORDERED: NICOTINE PATCH1 EAC2 TD (13:54)
[2018-05-08] MEDS ORDERED: LIBRIUM25 MG PO (14:03)
[2018-05-08] MEDS ORDERED: NORCO 5/3251 TABLET PO (14:10)
[2018-05-08] MEDS ORDERED: TYLENOL REGULA325 MG PO (14:10)
[2018-05-09] MEDS ORDERED: NORCO 5/3251 TABLET PO (20:48)
== END 2018-05-08 15:19 | disposition home or self-care (01) | DRG 439 ==
LOC: EME 16:17 → EDOF 18:24 → 5EAST 18:24 → ENRESERV 18:26 → 5EAST 20:38
PROVIDERS: Emergency Medicine; Hospitalist; Student in an Organized Health Care Education/Training Program
PROC: HZ2ZZZZ Detoxification Services for Substance Abuse Treatment (ICD-10-PCS; principal; 2018-05-04)
DX: K85.20 Alcohol induced acute pancreatitis without necrosis or infection (principal); K86.0 Alcohol-induced chronic pancreatitis; F10.239 Alcohol dependence with withdrawal, unspecified; Y90.0 Blood alcohol level of less than 20 mg/100 ml; K21.9 Gastro-esophageal reflux disease without esophagitis; F17.200 Nicotine dependence, unspecified, uncomplicated; I10 Essential (primary) hypertension; E87.2 Acidosis; E66.9 Obesity, unspecified; Z68.31 Body mass index [BMI] 31.0-31.9, adult
CPT/HCPCS: 71045; 74177; 80048; 80053; 81003; 82948; 83690; 83735; 85025; 86140; 93005; 99281; 99285; C1753; G0480; J0360; J1170; J1650; J2060; J2405; J3010; J3411; J7030; J7050; J7120; S0028

== ENCOUNTER 2018-05-09 18:31 | Emergency (ER) | payer OTHER ==
[~2018-05-09] VITALS: Ht 182.9 cm; Wt 99.5 kg
[~2018-05-09 18:31] MED LIST changes: +B-1100 MG PO; +LIBRIUM25 MG PO; +NAPROSYN500 MG PO; +NICOTINE PATCH1 EAC2 TD; +NORCO 5/3251 TABLET PO; +TYLENOL REGULA325 MG PO
[2018-05-09 19:13] LABS: HEMATOCRIT 45.1 % (38.0-50.0); HEMOGLOBIN 16.9 G/DL (12.5-16.6); MCH 32.9 PG (29.0-34.0); MCHC 37.5 G/DL (30.0-36.0); MCV 87.7 FL (86-99); PLATELET COUNT 304 K/uL (156-360); RBC DIS.WIDTH-CV 11.9 % (11.8-14.6); RBC DIS.WIDTH-SD 38.6 % (39-53); RED BLOOD COUNT 5.14 M/uL (4.00-5.50); WHITE BLOOD COUNT 12.4 K/uL (4.1-10.2)
[2018-05-09 19:49] LABS: ALBUMIN 4.1 g/dL (3.2-4.8); CHLORIDE 97 mEq/L (99-109); POTASSIUM 3.4 mEq/L (3.7-5.4); SODIUM 132 mEq/L (136-147)
[2018-05-09 19:51] LABS: GLUCOSE 121 mg/dL (70-99)
[2018-05-09 19:55] LABS: ALKALINE PHOSPHATASE 86 IU/L (3-129); CREATININE 0.8 mg/dL (0.6-1.3); GFR ESTIMATE (CALCULATED) > 59 mL/min/ (58.99-99999)
[2018-05-09 19:56] LABS: UREA NITROGEN (BUN) 11 mg/dL (9-23)
[2018-05-09 19:57] LABS: AST (GOT) 84 IU/L (2-34)
[2018-05-09 19:58] LABS: ALT (GPT) 79 IU/L (3-49); LIPASE 47 U/L (1.0-51.0)
[2018-05-09 20:02] LABS: TOTAL BILIRUBIN 0.9 mg/dL (0.0-1.0)
[2018-05-09] MEDS ORDERED: NORCO 5/3251 TABLET PO (20:48)
[2018-05-09 21:00] VITALS: BP 150/104
== END 2018-05-09 21:01 | disposition home or self-care (01) ==
LOC: EME 18:31
PROVIDERS: Physician Assistant
DX: K86.1 Other chronic pancreatitis (principal); K21.9 Gastro-esophageal reflux disease without esophagitis; F17.200 Nicotine dependence, unspecified, uncomplicated; Z87.19 Personal history of other diseases of the digestive system
CPT/HCPCS: 80053; 83690; 85027; 99281; 99284

== ENCOUNTER 2018-05-22 23:37 | Emergency (ER) | payer OTHER ==
[~2018-05-22] VITALS: Ht 182.9 cm; Wt 97.6 kg
[2018-05-23 00:37] LABS: HEMATOCRIT 46.8 % (38.0-50.0); HEMOGLOBIN 17.1 G/DL (12.5-16.6); MCH 32.5 PG (29.0-34.0); MCHC 36.5 G/DL (30.0-36.0); RBC DIS.WIDTH-CV 12.1 % (11.8-14.6); RBC DIS.WIDTH-SD 39.7 % (39-53); RED BLOOD COUNT 5.26 M/uL (4.00-5.50); WHITE BLOOD COUNT 17.9 K/uL (4.1-10.2)
[2018-05-23 00:52] LABS: ALBUMIN 4.7 g/dL (3.2-4.8); CHLORIDE 104 mEq/L (99-109); SODIUM 135 mEq/L (136-147)
[2018-05-23 00:54] LABS: PLATELET COUNT 451 K/uL (156-360)
[2018-05-23 00:55] LABS: GLUCOSE 126 mg/dL (70-99); TOTAL PROTEIN 8.2 g/dL (6.4-8.3)
[2018-05-23 00:57] LABS: TOTAL BILIRUBIN 0.5 mg/dL (0.0-1.0)
[2018-05-23 00:58] LABS: ALKALINE PHOSPHATASE 100 IU/L (3-129); CREATININE 1.1 mg/dL (0.6-1.3); GFR ESTIMATE (CALCULATED) > 59 mL/min/ (58.99-99999)
[2018-05-23 00:59] LABS: UREA NITROGEN (BUN) 12 mg/dL (9-23)
[2018-05-23 01:00] LABS: AST (GOT) 38 IU/L (2-34)
[2018-05-23 01:01] LABS: ALT (GPT) 79 IU/L (3-49)
[2018-05-23 01:43] VITALS: BP 138/94
== END 2018-05-23 01:43 | disposition home or self-care (01) ==
LOC: EME 23:37
PROVIDERS: Emergency Medicine
DX: R10.84 Generalized abdominal pain (principal); R11.2 Nausea with vomiting, unspecified; R19.7 Diarrhea, unspecified; F17.200 Nicotine dependence, unspecified, uncomplicated
CPT/HCPCS: 80053; 85027; 99281; 99284; J0500; J2765; J7030